=== PATIENT | male | born 1965 | race Caucasian/White ===

== ENCOUNTER 2018-06-27 00:10 | Emergency (ER) | payer BC ==
--- NOTE | 2018-06-27 02:33 | ER ---
Nurse's Notes [facility] Name: Prashant Ruiz Age: 53 yrs Sex: Male : 1965 Arrival Date: 06/27/2018 Time: 00:13 Bed 6 Private MD: Ruth Meyers C Diagnosis: Left leg swelling Presentation: 06/27 00:15 Presenting complaint: Patient states: that approx 2 days ago he started to have left fc lower leg pain. Denies any injury. Transition of care: patient was not received from another setting of care. Onset of symptoms was June 25, 2018. Risk Assessment: Do you want to hurt yourself or someone else? Patient reports no desire to harm self or others. Initial Sepsis Screen: Does the patient meet any 2 criteria? No. Patient's initial sepsis screen is negative. Does the patient have a suspected source of infection? No. Patient's initial sepsis screen is negative. Care prior to arrival: Medication(s) given: Motrin, 600 mg, last at 2109. 00:15 Method Of Arrival: Ambulatory fc 00:15 Acuity: MALDONADO 4 fc Triage Assessment: 00:27 General: Appears in no apparent distress. Behavior is calm, cooperative. ak1 Historical: - Allergies: 00:18 No Known Allergies; fc - Home Meds: 00:18 Zyrtec 10 mg Oral chew 1 tab once daily [Active]; fc - PMHx: 00:18 Allergies; fc - PSHx: 00:18 right thumb repair; Cholecystectomy; fc - Immunization history:: Last tetanus immunization: unknown, Flu vaccine is up to date. - Social history:: Smoking status: Patient/guardian denies using tobacco, Patient uses alcohol, on a daily basis. - Ebola Screening: : Patient negative for fever greater than or equal to 101.5 degrees Fahrenheit, and additional compatible Ebola Virus Disease symptoms Patient denies exposure to infectious person Patient denies travel to an Ebola-affected area in the 21 days before illness onset. - Family history:: not pertinent. - Hospitalizations: : No recent hospitalization is reported. Screenin:27 Abuse screen: Denies threats or abuse. Denies injuries from another. Nutritional ak1 screening: No deficits noted. Tuberculosis screening: No symptoms or risk factors identified. Fall Risk None identified. Assessment: 00:36 General: Appears in no apparent distress. Pain: Complains of pain in left leg. Neuro: ak1 No deficits noted. Cardiovascular: No deficits noted. Respiratory: No deficits noted. GI: No signs and/or symptoms were reported involving the gastrointestinal system. : No signs and/or symptoms were reported regarding the genitourinary system. EENT: No signs and/or symptoms were reported regarding the EENT system. Derm: Skin is pink, warm \T\ dry. Skin temperature is warm swelling noted to left lower leg, no heat or redness noted upon inspection. Musculoskeletal: No signs and/or symptoms reported regarding the musculoskeletal system. 01:25 Reassessment: pt and family updated on wait for US tech to arrive for diagnostics. ak1 01:37 Reassessment: US at the bedside. ak1 02:29 Reassessment: Patient appears in no apparent distress at this time. No changes from ak1 previously documented assessment. Patient and/or family updated on plan of care and expected duration. Pain level reassessed. Patient is alert, oriented x 3, equal unlabored respirations, skin warm/dry/pink. Vital Signs: 00:18 BP 152 / 96; Pulse 86; Resp 18; Temp 99.2(O); Pulse Ox 95% on R/A; Weight 97.52 kg (R); fc Height 5 ft. 9 in. (175.26 cm) (R); Pain 8/10; 01:39 BP 153 / 87; Pulse 88; Resp 16; Pulse Ox 98% on R/A; ak1 02:02 BP 136 / 95; Pulse 80; Resp 16; Pulse Ox 97% on R/A; ak1 02:43 BP 147 / 87; Pulse 74; Resp 16; Pulse Ox 97% on R/A; ak1 00:18 Body Mass Index 31.75 (97.52 kg, 175.26 cm) ED Course: 00:13 Patient arrived in ED. es 00:15 Ruth Meyers MD is Private Physician. fc 00:17 Triage completed. fc 00:18 Arm band placed on Patient placed in an exam room, on a stretcher. fc 00:22 Jennifer Gannon, RN is Primary Nurse. ak1 00:25 Hai Kaplan MD is Attending Physician. rn 00:27 Patient has correct armband on for positive identification. Bed in low position. Call ak1 light in reach. Side rails up X 1. Adult w/ patient. Pulse ox on. NIBP on. 01:30 Door closed. Lights dimmed. Warm blanket given. Pillow given. ak1 01:32 Ultrasound completed. Patient tolerated well. Notified Primary Nurse with prelim . sg3 01:55 Extremity Venous Uni Ltd US In Process Unspecified. EDMS 02:30 No provider procedures requiring assistance completed. ak1 02:32 Ruth Meyers MD is Referral Physician. rn 02:43 Patient did not have IV access during this emergency room visit. ak1 Administered Medications: No medications were administered Outcome: 02:33 Discharge ordered by MD. rn 02:42 Discharged to home ambulatory, with family. ak1 02:42 Condition: good 02:42 Discharge instructions given to patient, family, Instructed on discharge instructions, follow up and referral plans. Demonstrated understanding of instructions, follow-up care. 02:44 Patient left the ED. ak1 Signatures: Dispatcher [employer] EDSusu Pemberton Felicia RN YOEL Hai Kaplan MD MD rn Krenek, Amber, RN RN ak1 Thelma Ricketts sg3 Corrections: (The following items were deleted from the chart) 00:21 00:18 97.52 kg Reported; Height 5 ft. 9 in. Reported; BMI: 31.7; Pain 8/10; [facility]
--- NOTE | 2018-06-27 02:33 | EDPHYS ---
Physician Documentation [facility] Name: Prashant Ruiz Age: 53 yrs Sex: Male : 1965 Arrival Date: 06/27/2018 Time: 00:13 Bed 6 Private MD: Ruth Meyers C ED Physician Hai Kaplan HPI: 06/27 01:03 This 53 yrs old Male presents to ER via Ambulatory with complaints of Leg rn Pain. 01:03 The patient presents with pain, swelling. The complaints affect the left calf. Onset: rn The symptoms/episode began/occurred 2 day(s) ago. Modifying factors: The symptoms are alleviated by nothing. the symptoms are aggravated by nothing. Severity of symptoms: At their worst the symptoms were mild, in the emergency department the symptoms are unchanged. The patient has not experienced similar symptoms in the past. Reports left leg swelling, mild discomfort, no injury, no rash, no fever, has never happened before, no recent surgery/trauma, not immobilized. . Historical: - Allergies: 00:18 No Known Allergies; fc - Home Meds: 00:18 Zyrtec 10 mg Oral chew 1 tab once daily [Active]; fc - PMHx: 00:18 Allergies; fc - PSHx: 00:18 right thumb repair; Cholecystectomy; fc - Immunization history:: Last tetanus immunization: unknown, Flu vaccine is up to date. - Social history:: Smoking status: Patient/guardian denies using tobacco, Patient uses alcohol, on a daily basis. - Ebola Screening: : Patient negative for fever greater than or equal to 101.5 degrees Fahrenheit, and additional compatible Ebola Virus Disease symptoms Patient denies exposure to infectious person Patient denies travel to an Ebola-affected area in the 21 days before illness onset. - Family history:: not pertinent. - Hospitalizations: : No recent hospitalization is reported. ROS: 01:03 Constitutional: Negative for fever, chills, and weight loss, Cardiovascular: Negative rn for chest pain, palpitations, and edema, Respiratory: Negative for shortness of breath, cough, wheezing, and pleuritic chest pain, Abdomen/GI: Negative for abdominal pain, nausea, vomiting, diarrhea, and constipation, Back: Negative for injury and pain, MS/Extremity: + left leg swelling Skin: Negative for injury, rash, and discoloration, Neuro: Negative for headache, weakness, numbness, tingling, and seizure. Exam: 01:03 Constitutional: This is a well developed, well nourished patient who is awake, alert, rn and in no acute distress. Respiratory: No increased work of breathing, no retractions or nasal flaring. MS/ Extremity: Pulses equal, no cyanosis. Neurovascular intact. Full, normal range of motion. + left leg swelling with mild calf tenderness, LLE circumference 1cm larger than RLE. no palpable cord. Vital Signs: 00:18 BP 152 / 96; Pulse 86; Resp 18; Temp 99.2(O); Pulse Ox 95% on R/A; Weight 97.52 kg (R); fc Height 5 ft. 9 in. (175.26 cm) (R); Pain 8/10; 01:39 BP 153 / 87; Pulse 88; Resp 16; Pulse Ox 98% on R/A; ak1 02:02 BP 136 / 95; Pulse 80; Resp 16; Pulse Ox 97% on R/A; ak1 02:43 BP 147 / 87; Pulse 74; Resp 16; Pulse Ox 97% on R/A; ak1 00:18 Body Mass Index 31.75 (97.52 kg, 175.26 cm) fc MDM: 00:25 Patient medically screened. rn 02:31 Differential diagnosis: DVT, lymphedema, incompetent venous system. Data reviewed: rn vital signs, nurses notes, radiologic studies, doppler, and as a result, I will discharge patient. Counseling: I had a detailed discussion with the patient and/or guardian regarding: the historical points, exam findings, and any diagnostic results supporting the discharge/admit diagnosis, radiology results, the need for outpatient follow up, to return to the emergency department if symptoms worsen or persist or if there are any questions or concerns that arise at home. Special discussion: I discussed with the patient/guardian in detail that at this point there is no indication for admission to the hospital. It is understood, however, that if the symptoms persist or worsen the patient needs to return immediately for re-evaluation. Based on the history and exam findings, there is no indication for further emergent testing or inpatient evaluation. I discussed with the patient/guardian the need to see the primary care provider for further evaluation of the symptoms. ED course: Neg u/s. . 06/27 00:44 Order name: Extremity Venous Uni Ltd rn Administered Medications: No medications were administered Disposition: 06/27/18 02:33 Discharged to Home. Impression: Left leg swelling. - Condition is Stable. - Discharge Instructions: Edema, Peripheral Edema. - Medication Reconciliation Form, Thank You Letter, Antibiotic Education, Prescription Opioid Use form. - Follow up: Ruth Meyers MD; When: 2 - 3 days; Reason: Recheck today's complaints, Re-evaluation by your physician. - Problem is new. - Symptoms are unchanged. Signatures: Dispatcher [employer] EDMS Renee Thompson RN RN Hai Kaplan MD MD rn Krenek, Amber, RN RN ak1 Corrections: (The following items were deleted from the chart) 02:44 02:33 06/27/2018 02:33 Discharged to Home. Impression: Left leg swelling. Condition is ak1 Stable. Forms are Medication Reconciliation Form, Thank You Letter, Antibiotic Education, Prescription Opioid Use. Follow up: Ruth Meyers; When: 2 - 3 days; Reason: Recheck today's complaints, Re-evaluation by your physician. Problem is new. Symptoms are unchanged. rn
--- NOTE | 2018-06-27 09:56 | RAD REPORT ---
EXAM DESCRIPTION: US - Extremity Venous Uni Ltd - 06/27/2018 1:54 am CLINICAL HISTORY: Left leg pain and swelling COMPARISON: None. TECHNIQUE: Real-time sonographic evaluation of the left lower extremity deep venous system was perfo rmed. FINDINGS: Normal compressibility, flow augmentation, phasic flow and spontaneous flow are identified in the left lower extremity common femoral, superficial femoral, popliteal and posterior tibial vein s. No intraluminal filling defects seen. IMPRESSION: No DVT in the left lower extremity.
== END 2018-06-27 02:44 | disposition home or self-care (01) ==
LOC: ER 00:10
DX: R60.9 Edema, unspecified (principal)
CPT/HCPCS: 93971; 99283